=== PATIENT | female | born 1960 | race Caucasian/White ===

== ENCOUNTER 2023-06-30 10:05 | Outpatient (CLI) | payer BC, SELFPAY ==
--- NOTE | ~2023-06-30 | MM_ITS ---
EXAMINATION: MM screening charisma BI w idalia HISTORY: Screening mammogram, family history of breast cancer in her daughter. TECHNIQUE: Craniocaudal and mediolateral oblique 3-D tomosynthesis images were obtained and synthetic 2-D images were generated. CAD analysis was submitted and interpreted. COMPARISON: No prior mammogram is available for comparison at this institution. BREAST PARENCHYMAL COMPOSITION: There are scattered areas of fibroglandular density. FINDINGS: RIGHT BREAST: Asymmetry is present in the anterior/middle third of the slightly upper breast on the m ediolateral oblique view. LEFT BREAST: No suspicious mass, calcification, or architectural distortion are identified to suggest malignancy. IMPRESSION: 1. Right breast asymmetry which may represent the patient's baseline however no comparison is current ly available. 2. Comparison with prior mammograms is necessary. BI-RADS Category 0: Incomplete: Needs comparison with prior mammograms. Reviewed, dictated and finalized at location A. IMPRESSION: 1. Right breast asymmetry which may represent the patient's baseline however no comparison is currently available. 2. Comparison with prior mammograms is necessary. BI-RADS Category 0: Incomplete: Needs comparison with prior mammograms.
== END 2023-06-30 10:06 | disposition home or self-care (01) ==
LOC: CHSIMG 10:13
PROVIDERS: Visit Provider Obstetrics & Gynecology
DX: Z12.31 Encounter for screening mammogram for malignant neoplasm of breast (principal); R92.8 Other abnormal and inconclusive findings on diagnostic imaging of breast
CPT/HCPCS: 77063; 77067

== ENCOUNTER 2023-08-06 08:42 | Outpatient (CLI) | payer BC, SELFPAY ==
--- NOTE | ~2023-08-06 | MMUS_ITS ---
EXAMINATION: MM diagnostic charisma RT w idalia, US breast RT limited HISTORY: Right breast asymmetry reported on 06/30/2023 screening mammogram TECHNIQUE: Additional 3-D tomosynthesis images of the right breast were performed and synthetic 2-D i mages were generated. CAD analysis was submitted and interpreted. High resolution upper inner and upp er outer quadrant right breast ultrasound was performed. COMPARISON: 06/30/2023 bilateral screening mammogram FINDINGS: MAMMOGRAPHIC FINDINGS: No suspicious mass, architectural distortion, malignant calcification, skin thickening or retraction is evident. ULTRASOUND: No suspicious mass or shadowing is detected in the upper inner or upper outer quadrants. No cyst or o ther significant finding is noted. IMPRESSION: 1. No mammographic evidence of malignancy 2. Routine annual mammographic screening is recommended BI-RADS Category 1: Negative Reviewed, dictated and finalized at location A. IMPRESSION: 1. No mammographic evidence of malignancy 2. Routine annual mammographic screening is recommended BI-RADS Category 1: Negative
== END 2023-08-06 08:43 | disposition home or self-care (01) ==
LOC: CHSIMG 08:48
PROVIDERS: Visit Provider Obstetrics & Gynecology
DX: N63.10 Unspecified lump in the right breast, unspecified quadrant (principal)
CPT/HCPCS: 76642; 77061; 77065; G0279

== ENCOUNTER 2023-12-21 07:41 | Outpatient (CLI) | payer MEDICARE, SELFPAY ==
--- NOTE | ~2023-12-21 | DEXA_ITS ---
Bone Density Report Name: RADHA GRAJEDA Age: 63 Sex: Female Ethnicity: White Date of : 1960 Indication: postmenopausal; screening for osteoporosis; seizure disorder; secondary osteoporosis; Referring Provider: UNKNOWN, UNKNOWN Study: Bone densitometry was performed. Exam Date: December 21, 2023 Accession number: [id number] Bone Density: Region BMD T-score Z-score Classification AP Spine(L1-L4) 0.858 -1.7 0.0 Osteopenia Femoral Neck (Left) 0.715 -1.2 0.3 Osteopenia Total Hip (Left) 0.722 -1.8 -0.6 Osteopenia Femoral Neck (Right) 0.662 -1.7 -0.2 Osteopenia Total Hip (Right) 0.759 -1.5 -0.3 Osteopenia Femoral Neck Mean 0.689 -1.4 0.1 Osteopenia Total Hip Mean 0.740 -1.7 -0.4 Osteopenia World Health Organization criteria for BMD impression classify patients as: Normal (T-score at or above -1.0), Osteopenia (T-score between -1.0 and -2.5), or Osteoporosis (T-score at or below -2.5). Clinical Information Provided by Patient: Has secondary osteoporosis Has used the following medications: Fosamax (i.e. alendronate), Vitamin D, Calcium Has the following medical conditions: Any Seizure Disorders Patient maximum height was 64.5 Menopause Age: 43 No regular weight bearing exercise Onset of menses at age 11 Number of children 3 Impression: The patient has low bone mass, based on the Left Total Hip T-score. Discussion: BONE DENSITY IS LOW AT ONE OR MORE SKELETAL SITES. This patient's lowest T-score is low at one or more skeletal sites. It meets the World Health Organization's (WHO) criteria for ?low bone mass? (T-score between -1.0 and -2.5). The patient's 10-year risk of fracture as calculated by FRAX is less than the threshold where pharmacological therapy is recommended by the National Osteoporosis Foundation (NOF). However, all treatment decisions require clinical judgment and consideration of individual patient factors, including patient preferences, comorbidities, previous drug use, risk factors not captured in the FRAX model (e.g., frailty, falls, vitamin D deficiency, increased bone turnover, interval significant decline in bone density) and possible under or overestimation of fracture risk by FRAX. The patient should follow a healthful lifestyle (good nutrition with adequate calcium and vitamin D, and appropriate weight-bearing exercise). Follow-Up: Consider repeating this study in 2 to 3 years to reassess this patient's status, or sooner if there is some new clinical indication. Reported by: Dr. Per Blake on 12/21/2023 8:19:00 AM. Reviewed, dictated and finalized at location A.
--- NOTE | ~2023-12-21 | US_ITS ---
Limited Abdominal Sonogram: Real-time sonographic imaging of the right upper quadrant was performed. Clinical History: Epigastric pain Findings: The liver appears normal with no evidence of mass lesion or bile duct dilatation. Main por jarrett vein demonstrates normal direction of flow. The gallbladder is well distended, and appears normal with no evidence of gallstone or wall thickening. The common bile duct measures 4 mm. The visualize d pancreas, aorta, and IVC are unremarkable. Impression: No significant abnormality seen. Reviewed, dictated and finalized at location . ALOMETRIC ANALYST Impression: No significant abnormality seen.
== END 2023-12-21 07:42 | disposition home or self-care (01) ==
LOC: CHSIMG 07:45
PROVIDERS: PCP Internal Medicine
DX: R10.13 Epigastric pain (principal); Z78.0 Asymptomatic menopausal state; M85.89 Other specified disorders of bone density and structure, multiple sites
CPT/HCPCS: 76705; 77080

== ENCOUNTER 2024-08-17 08:17 | Outpatient (CLI) | payer MEDICARE, SELFPAY ==
--- NOTE | ~2024-08-17 | MM_ITS ---
EXAMINATION: MM screening charisma BI w idalia HISTORY: Screening TECHNIQUE: Craniocaudal and mediolateral oblique 3-D tomosynthesis images were obtained and synthetic 2-D images were generated. CAD analysis was submitted and interpreted. COMPARISON: Comparison to multiple prior studies sequentially, with oldest reviewed study dated 02/14. BREAST PARENCHYMAL COMPOSITION: Not dense: There are scattered areas of fibroglandular density. FINDINGS: There is no evidence of suspicious mass, calcification, or architectural distortion to sugg est malignancy in either breast. There has been no suspicious interval change. IMPRESSION: 1. No mammographic evidence of malignancy. 2. Recommend routine screening mammography in one year. BI-RADS Category 1: Negative Reviewed, dictated and finalized at location B.
== END 2024-08-17 08:18 | disposition home or self-care (01) ==
PROVIDERS: PCP Internal Medicine; Visit Provider Obstetrics & Gynecology
DX: Z12.31 Encounter for screening mammogram for malignant neoplasm of breast (principal)
CPT/HCPCS: 77063; 77067

== ENCOUNTER 2025-09-19 12:52 | Outpatient (CLI) | payer MEDICARE, SELFPAY ==
--- NOTE | ~2025-09-19 | MM_ITS ---
EXAMINATION: MM screening contra [facility] BI w idalia HISTORY: Screening TECHNIQUE: Craniocaudal and mediolateral oblique 3-D tomosynthesis images were obtained and synthetic 2-D images were generated. CAD analysis was submitted and interpreted. COMPARISON: Comparison to multiple prior studies sequentially, with oldest reviewed study dated 02/14/2021. BREAST PARENCHYMAL COMPOSITION: Not dense: There are scattered areas of fibroglandular density. FINDINGS: There is no evidence of suspicious mass, calcification, or architectural distortion to suggest malignancy in either breast. There has been no suspicious interval change. IMPRESSION: 1. No mammographic evidence of malignancy. 2. Recommend routine screening mammography in one year. BI-RADS Category 1: Negative Reviewed, dictated and finalized at location B.
--- OUTSIDE RECORDS SUMMARY | 2025-09-19 14:11 | XMS_ITS | Clinical Summary ---
Author Organization [facility] [address] [place] [address] Care Team Providers Care Grid Operator Name Role Phone Federica Asencio MD Primary Care Provider + Allergies Active Allergy Reactions Criticality Noted Date Comments Fluconazole Hives Medium 01/11/2024 Medications phenytoin ER (DILANTIN) 30 mg ER capsule Take 1 capsule (30 mg total) by mouth 3 (three) times a day Active levothyroxine (SYNTHROID) 25 mcg tablet Take 1 tablet (25 mcg total) by mouth window dresser before breakfast Active Active Problems Problem Noted Date Diagnosed Date Globus sensation 01/11/2024 Assessment & Plan (01/11/2024 12:56 PM BIOLOGICAL SCIENCE AIDE): I reassured her that her throat looks okay. I do not find any abnormal lesions or other problems. It is very possible that reflux could be causing the symptoms. In any case I did not recommend further investigation or treatment. She also did not want to pursue it any further. Tinnitus of both ears 01/11/2024 Assessment & Plan (01/11/2024 12:57 PM BIOLOGICAL SCIENCE AIDE): I talked with the patient about tinnitus. Typically it is due to hearing loss but there are other potential reasons for it. It can occur due to cervical strain or TMJ disorder. Also potentially due to tumors which are usually benign. Unfortunately there is no widely accepted or successful treatment for it. There are a lot of [id number] remedies which generally do not help and I really do not recommend any of them. In her case I think the hearing loss is probably causing this. She understands. She has no questions. Sensorineural hearing loss (SNHL) of both ears 0 01/11/2024 Assessment & Plan (01/14/2024 6:02 PM BIOLOGICAL SCIENCE AIDE): I reviewed her hearing test with her. It shows a high-frequency mild bilateral sensorineural hearing loss. Discrimination scores are excellent. I think she is a borderline candidate for amplification and we talked about that. If she should have increased difficulty socializing with people she should probably start considering it. I did indicate that I thought the hearing loss was causing her tinnitus. She understands. Surgical History Surgery Date Site/Laterality Comments SECTION 1978, 1980, 1983 SINUS SURGERY 1990s TONSILLECTOMY 11/22/1990 - 11/21/1991 BREAST LUMPECTOMY 11/22/1990 - 11/21/1991 BRAIN SURGERY 11/22/1968 - 11/21/1969 Medical History Medical History Date Comments Acid reflux disease Seizures (HCC) Thyroid disease Social History Tobacco Use Types Packs/Day Years Used Date Smoking Tobacco: Never Tobacco Cessation:Counseling Given: Not Answered Personal Safety Answer Date Recorded Getting School Help Needed Not on file 12/20 Comments Unknown Sex and Gender Information Value Date Recorded Sex Assigned at Not on file Legal Sex Female 3:52 PM BIOLOGICAL SCIENCE AIDE Gender Identity Not on file Sexual Orientation Not on file Obstetrics History Last Filed Vital Signs Vital Sign Reading Time Taken Comments Blood Pressure - - Pulse - - Temperature - - Respiratory Rate 18 01/11/2024 9:19 AM BIOLOGICAL SCIENCE AIDE Oxygen Saturation - - Inhaled Oxygen Concentration - - Weight 63 kg (139 lb) 01/11/2024 9:19 AM BIOLOGICAL SCIENCE AIDE Height 162.6 cm (5' 4) 01/11/2024 9:19 AM BIOLOGICAL SCIENCE AIDE Body Mass Index 23.86 01/11/2024 9:19 AM BIOLOGICAL SCIENCE AIDE Plan of Treatment Health Maintenance Due Date Last Done Comments Breast Cancer Screening-Mammogram 1960 Colon Cancer Screening-Colonoscopy 1960 Depression Screening 1960 Fall Risk Assessment 1960 Hepatitis C Screening 1960 Osteoporosis Screening-Bone Density Scan 1960 DTaP/Tdap/Td Vaccine (1 - Tdap) 1969 Hepatitis B Screening 1976 Pneumococcal vaccine 65+ (1 of 1 - PCV) 2008 Zoster Vaccine (1 of 2) 2008 Well Visit 65+ 2023 Influenza Vaccine (#1) 2025 Insurance [address] MEDICARE ADVANTAGE [facility] MED[facility] Address: [address] [address] [place] [address] MEDICARE ADVANTAGE [facility] [employer] Address: [address] [address] [place] [phone] Care Teams Grid Operator Relationship Specialty Start Date End Date Federica Asencio MD PCP - General Internal Medicine 12/20/23
== END 2025-09-19 12:53 | disposition home or self-care (01) ==
PROVIDERS: PCP Family Medicine; Visit Provider Obstetrics & Gynecology
DX: Z12.31 Encounter for screening mammogram for malignant neoplasm of breast (principal)
CPT/HCPCS: 77063; 77067